=== PATIENT | male | born 1980 | race Hispanic/Latino ===

== ENCOUNTER 2020-08-31 13:10 | Outpatient (CLI) | payer BC | END 2020-08-31 13:11 | disposition home or self-care (01) | LOC: BICRAD 13:10 | PROVIDERS: ATTEND Family Medicine | DX: R22.2 Localized swelling, mass and lump, trunk (principal) | CPT/HCPCS: 71046 ==

== ENCOUNTER 2022-02-17 07:13 | Outpatient (CLI) | payer BC ==
[2022-02-17] MEDS ORDERED: Iopamidol-370 76% 500 ML 1 ML ONE (11:49)
== END 2022-02-17 07:14 | disposition home or self-care (01) ==
LOC: BICCT 07:13
PROVIDERS: ATTEND Urology
DX: N28.89 Other specified disorders of kidney and ureter (principal); K44.9 Diaphragmatic hernia without obstruction or gangrene; D17.71 Benign lipomatous neoplasm of kidney; R93.421 Abnormal radiologic findings on diagnostic imaging of right kidney; R93.422 Abnormal radiologic findings on diagnostic imaging of left kidney
CPT/HCPCS: 74170; Q9967

== ENCOUNTER 2022-09-25 15:02 | Outpatient (CLI) | payer BC | END 2022-09-25 15:03 | disposition home or self-care (01) | LOC: BICULT 15:02 | PROVIDERS: ATTEND Urology | DX: N28.1 Cyst of kidney, acquired (principal) | CPT/HCPCS: 76770 ==

== ENCOUNTER 2023-11-24 08:02 | Outpatient (CLI) | payer BC ==
[2023-11-24] MEDS ORDERED: Iopamidol 370 76% 100 ML VIAL ONE (10:51)
== END 2023-11-24 08:03 | disposition home or self-care (01) ==
LOC: BICCT 08:02
PROVIDERS: ATTEND Urology
DX: N28.1 Cyst of kidney, acquired (principal)
CPT/HCPCS: 74170; 82565; Q9967